=== PATIENT | female | born 1980 | race Caucasian/White ===

== ENCOUNTER 2020-10-09 23:50 | Emergency (ER) | payer OTHER ==
[~2020-10-09 23:50] MED LIST: ALBUTEROL2.5 MG/3 M NEB; BENADRYL25 MG PO; CARAFATE1 GM PO; ELAVIL25 MG PO; FAMOTIDINE40 MG PO; HYDROMORPHONE2 MG/ML IVP; LEXAPRO 10MG TA10 MG PO; METRONIDAZOLE500 MG PO; NICOTINE PATCH1 EAC2 EXT; NORCO 5-325 TA1 EACH PO; PANTOPRAZOLE SO40 MG PO; PERCOCET 5-3251 EACH PO; PREDNISONE 20MG20 MG PO; ROCEPHIN 1GM1 GM IV; TASIGNA150 MG PO; TRAMADOL HCL50 MG PO
[2020-10-10 02:06] LABS: BASOPHIL 4.6 % (0-2); BILIRUBIN NEGATIVE (NEGATIVE); BLOOD TRACE-INTACT Ery/uL (NEGATIVE); CLARITY CLEAR (CLEAR); COLOR YELLOW (YELLOW); GLUCOSE (U) NORMAL (NORMAL); HGB 15.9 g/dl (12.5-16.0); LEUKOCYTES NEGATIVE Leu/uL (NEGATIVE); LYMPHOCYTE 35.2 % (15-48); MCH 28.9 pg (25.0-31.0); MCHC 31.8 g/dL (32.0-36.0); MCV 90.7 fL (78.0-100.0); MONOCYTE 3.2 % (0-12); MPV 10.3 fL (6.0-9.5); NITRITE NEGATIVE (NEGATIVE); NRBC 0; PLT 537 K/uL (150-400); PROTEIN NEGATIVE (NEGATIVE); RBC 5.51 M/uL (4.20-5.40); RDW 13.8 % (11.5-14.0); SPECIFIC GRAVITY 1.015 (1.001-1.030); UROBILINOGEN 0.2 mg/dL (0.2-1.0); WBC 12.5 K/uL (4.0-10.5); pH 6.5 (5.0-9.0)
[2020-10-10 02:10] LABS: BACTERIA 1+; INR 1.03 (0.9-1.2); PROTHROMBIN TIME 12.8 SECONDS (11.4-13.6); PTT 30.6 SECONDS (22.2-34.7)
[2020-10-10 02:32] LABS: ALBUMIN 3.4 g/dL (3.4-5.0); BILIRUBIN - TOTAL 0.2 mg/dL (0.2-1.0); BUN/CREAT RATIO (CALC) 13.6 RATIO; CREATININE 0.59 mg/dL (0.51-0.95); GLOBULIN (CALCULATION) 4.1 g/dL; POTASSIUM 3.9 mmol/L (3.5-5.1); TOTAL PROTEIN 7.5 g/dL (6.4-8.2)
[2020-10-10] MEDS ORDERED: ZOFRAN4 M1 PO (06:17)
[2020-10-10] MEDS ORDERED: NORCO 5-325 TA1 EACH PO (06:17)
[2020-10-10] MEDS ORDERED: PHENERGAN25 M1 PO (06:34)
[2021-01-09] MEDS ORDERED: ULTRAM50 MG PO (11:31)
== END 2020-10-10 06:23 | disposition home or self-care (01) ==
LOC: FER 23:50 → EDBD 23:50 → FER 10-10 06:23
PROVIDERS: Emergency Medicine
DX: R10.9 Unspecified abdominal pain (principal); R11.2 Nausea with vomiting, unspecified; C92.10 Chronic myeloid leukemia, BCR/ABL-positive, not having achieved remission; F17.210 Nicotine dependence, cigarettes, uncomplicated; Z79.899 Other long term (current) drug therapy; Z98.2 Presence of cerebrospinal fluid drainage device; Z88.5 Allergy status to narcotic agent; Z88.8 Allergy status to other drugs, medicaments and biological substances
CPT/HCPCS: 36415; 80053; 81001; 82728; 83605; 83690; 83735; 84145; 85025; 85610; 85730; 87040; J1170; J2550; J7030; Q9967

== ENCOUNTER 2020-12-08 20:42 | Emergency (ER) | payer OTHER ==
[~2020-12-08 20:42] MED LIST changes: +PHENERGAN25 M1 PO; +ZOFRAN4 M1 PO
[2020-12-08 23:48] LABS: BASOPHIL 11.6 % (0-2); EOSINOPHIL 2.1 % (0-5); HCT 48.8 % (37.0-47.0); HGB 15.9 g/dl (12.5-16.0); MCH 28.6 pg (25.0-31.0); MCHC 32.6 g/dL (32.0-36.0); MCV 87.9 fL (78.0-100.0); MPV 10.9 fL (6.0-9.5); NRBC 0.3; RBC 5.55 M/uL (4.20-5.40); RDW 18.4 % (11.5-14.0)
[2020-12-08 23:54] LABS: WBC 30.2 K/uL (4.0-10.5)
[2020-12-08 23:55] LABS: NEUTROPHIL 49.2 % (41-80); PLT 1631 K/uL (150-400)
[2020-12-09 00:08] LABS: ALBUMIN 3.6 g/dL (3.4-5.0); BILIRUBIN - TOTAL 0.3 mg/dL (0.2-1.0); BUN/CREAT RATIO (CALC) 13.2 RATIO; CREATININE 0.68 mg/dL (0.51-0.95); GLOBULIN (CALCULATION) 4.3 g/dL; POTASSIUM 4.3 mmol/L (3.5-5.1); TOTAL PROTEIN 7.9 g/dL (6.4-8.2)
[2020-12-09 00:13] LABS: LACTIC ACID 1.2 mmol/L (0.4-1.9)
[2020-12-09 02:19] LABS: BILIRUBIN NEGATIVE (NEGATIVE); BLOOD TRACE-INTACT Ery/uL (NEGATIVE); CLARITY HAZY (CLEAR); COLOR YELLOW (YELLOW); GLUCOSE (U) NORMAL (NORMAL); LEUKOCYTES NEGATIVE Leu/uL (NEGATIVE); NITRITE NEGATIVE (NEGATIVE); PROTEIN NEGATIVE (NEGATIVE); UROBILINOGEN 0.2 mg/dL (0.2-1.0); pH 7.5 (5.0-9.0)
[2020-12-09 02:26] LABS: BACTERIA 3+
[2020-12-09] MEDS ORDERED: BENTYL10 MG PO (02:53)
[2020-12-09] MEDS ORDERED: PERCOCET 7.5/321 TAB PO (02:53)
[2020-12-09] MEDS ORDERED: BACTRIM DS TAB1 EACH PO (02:53)
[2021-01-09] MEDS ORDERED: ULTRAM50 MG PO (11:31)
[2021-03-25] MEDS ORDERED: NEURONTIN300 MG PO (12:54)
[2021-03-25] MEDS ORDERED: NORCO 5/3251 EACH PO (17:30)
[2021-04-08] MEDS ORDERED: VENLAFAXINE HCL75 M2 PO (09:56)
[2021-04-08] MEDS ORDERED: VENLAFAXINE H37.5 M2 PO (09:56)
== END 2020-12-09 03:15 | disposition home or self-care (01) ==
LOC: FER 20:42
PROVIDERS: Emergency Medicine Emergency Medical Services
DX: N30.00 Acute cystitis without hematuria (principal); F17.210 Nicotine dependence, cigarettes, uncomplicated; Z88.5 Allergy status to narcotic agent; Z88.8 Allergy status to other drugs, medicaments and biological substances
CPT/HCPCS: 36415; 80053; 81001; 83605; 85025; 96372; J1170; J2550; J7030

== ENCOUNTER → 2021-01-09 | Day surgery (SDC) | payer OTHER ==
[~2021-01-09] VITALS: Ht 157.5 cm; Wt 117.9 kg
[~2021-01-09] MED LIST changes: +BACTRIM DS TAB1 EACH PO; +BENTYL10 MG PO; +PERCOCET 7.5/321 TAB PO; +ULTRAM50 MG PO
[2021-01-09 08:44] LABS: BASOPHIL 11.1 % (0-2); EOSINOPHIL 2.8 % (0-5); HCT 44.4 % (37.0-47.0); HGB 14.7 g/dl (12.5-16.0); LYMPHOCYTE 13.5 % (15-48); MCH 29.8 pg (25.0-31.0); MCHC 33.1 g/dL (32.0-36.0); MCV 89.9 fL (78.0-100.0); MPV 11.3 fL (6.0-9.5); NEUTROPHIL 51.6 % (41-80); NRBC 0.7; RBC 4.94 M/uL (4.20-5.40)
[2021-01-09 08:47] LABS: PLT 1097 K/uL (150-400)
[2021-01-09 08:48] LABS: WBC 42.1 K/uL (4.0-10.5)
[2021-01-09 08:56] LABS: INR 1.09 (0.9-1.2); PROTHROMBIN TIME 13.4 SECONDS (11.4-13.6); PTT 32.3 SECONDS (22.2-34.7)
== END | disposition home or self-care (01) ==
LOC: FAS 07:36
PROVIDERS: Anesthesiology
DX: C92.10 Chronic myeloid leukemia, BCR/ABL-positive, not having achieved remission (principal); I10 Essential (primary) hypertension; E78.5 Hyperlipidemia, unspecified; I25.2 Old myocardial infarction; K21.9 Gastro-esophageal reflux disease without esophagitis; M10.9 Gout, unspecified; G93.5 Compression of brain; F17.210 Nicotine dependence, cigarettes, uncomplicated; E66.01 Morbid (severe) obesity due to excess calories; Z68.42 Body mass index [BMI] 45.0-49.9, adult; Z88.5 Allergy status to narcotic agent; Z88.8 Allergy status to other drugs, medicaments and biological substances; Z79.899 Other long term (current) drug therapy
CPT/HCPCS: 36415; 71045; 76000; 85025; 85610; 85730; C1788; J0690; J1644; J2001; J2250; J2704; J7120

== ENCOUNTER 2021-02-12 10:36 | Emergency (ER) | payer OTHER ==
[2021-02-12 11:45] LABS: ALBUMIN 3.2 g/dL (3.4-5.0); BILIRUBIN - TOTAL 0.2 mg/dL (0.2-1.0); BUN/CREAT RATIO (CALC) 23.2 RATIO; CREATININE 0.56 mg/dL (0.51-0.95); GLOBULIN (CALCULATION) 4.2 g/dL; POTASSIUM 3.9 mmol/L (3.5-5.1); TOTAL PROTEIN 7.4 g/dL (6.4-8.2)
[2021-02-12 12:00] LABS: BASOPHIL 14.6 % (0-2); EOSINOPHIL 4.5 % (0-5); HCT 40.5 % (37.0-47.0); HGB 13.3 g/dl (12.5-16.0); MCH 30.4 pg (25.0-31.0); MCHC 32.8 g/dL (32.0-36.0); MCV 92.7 fL (78.0-100.0); MONOCYTE 1.3 % (0-12); MPV 11.7 fL (6.0-9.5); NEUTROPHIL 65.7 % (41-80); NRBC 0; PLT 848 K/uL (150-400); RBC 4.37 M/uL (4.20-5.40); RDW 19.9 % (11.5-14.0); WBC 17.4 K/uL (4.0-10.5)
[2021-02-12 12:07] LABS: BILIRUBIN NEGATIVE (NEGATIVE); BLOOD NEGATIVE Ery/uL (NEGATIVE); CLARITY CLEAR (CLEAR); COLOR YELLOW (YELLOW); GLUCOSE (U) NORMAL (NORMAL); LEUKOCYTES NEGATIVE Leu/uL (NEGATIVE); NITRITE NEGATIVE (NEGATIVE); PROTEIN NEGATIVE (NEGATIVE); SPECIFIC GRAVITY 1.025 (1.001-1.030); UROBILINOGEN 0.2 mg/dL (0.2-1.0)
[2021-03-25] MEDS ORDERED: NEURONTIN300 MG PO (12:54)
[2021-03-25] MEDS ORDERED: NORCO 5/3251 EACH PO (17:30)
[2021-04-08] MEDS ORDERED: VENLAFAXINE HCL75 M2 PO (09:56)
[2021-04-08] MEDS ORDERED: VENLAFAXINE H37.5 M2 PO (09:56)
== END 2021-02-12 13:40 | disposition home or self-care (01) ==
LOC: FER 10:36
PROVIDERS: Emergency Medicine
DX: R10.11 Right upper quadrant pain (principal); R31.9 Hematuria, unspecified; R11.2 Nausea with vomiting, unspecified; R19.7 Diarrhea, unspecified; F17.210 Nicotine dependence, cigarettes, uncomplicated; Z88.5 Allergy status to narcotic agent; Z88.8 Allergy status to other drugs, medicaments and biological substances
CPT/HCPCS: 36415; 80053; 81003; 82150; 83690; 85025; J0595; J1170; J1642; J1885; J2550

== ENCOUNTER 2021-02-26 19:24 | Emergency (ER) | payer OTHER ==
[2021-02-26 21:02] LABS: BASOPHIL 14.3 % (0-2); EOSINOPHIL 1.8 % (0-5); HCT 39.7 % (37.0-47.0); HGB 12.4 g/dl (12.5-16.0); LYMPHOCYTE 36.4 % (15-48); MCH 29.7 pg (25.0-31.0); MCHC 31.2 g/dL (32.0-36.0); MONOCYTE 12.1 % (0-12); MPV 10.5 fL (6.0-9.5); NEUTROPHIL 32.9 % (41-80); NRBC 0; PLT 781 K/uL (150-400); RBC 4.18 M/uL (4.20-5.40); RDW 17.2 % (11.5-14.0); WBC 7.1 K/uL (4.0-10.5)
[2021-02-26 21:12] LABS: ALBUMIN 3.3 g/dL (3.4-5.0); BILIRUBIN - TOTAL 0.3 mg/dL (0.2-1.0); BUN/CREAT RATIO (CALC) 16.4 RATIO; CREATININE 0.61 mg/dL (0.51-0.95); GLOBULIN (CALCULATION) 3.8 g/dL; POTASSIUM 3.9 mmol/L (3.5-5.1); TOTAL PROTEIN 7.1 g/dL (6.4-8.2)
[2021-02-26 21:28] LABS: BILIRUBIN NEGATIVE (NEGATIVE); BLOOD TRACE-INTACT Ery/uL (NEGATIVE); CLARITY CLEAR (CLEAR); COLOR YELLOW (YELLOW); GLUCOSE (U) NORMAL (NORMAL); LEUKOCYTES NEGATIVE Leu/uL (NEGATIVE); NITRITE NEGATIVE (NEGATIVE); PROTEIN NEGATIVE (NEGATIVE); SPECIFIC GRAVITY 1.025 (1.001-1.030); UROBILINOGEN 0.2 mg/dL (0.2-1.0); pH 6.5 (5.0-9.0)
[2021-02-26 21:35] LABS: AMORPHOUS URATES CRYSTALS MODERATE; BACTERIA TRACE; URINARY RBC RARE; URINARY WBC RARE
[2021-03-25] MEDS ORDERED: NEURONTIN300 MG PO (12:54)
[2021-03-25] MEDS ORDERED: NORCO 5/3251 EACH PO (17:30)
[2021-04-08] MEDS ORDERED: VENLAFAXINE HCL75 M2 PO (09:56)
[2021-04-08] MEDS ORDERED: VENLAFAXINE H37.5 M2 PO (09:56)
== END 2021-02-26 23:42 | disposition home or self-care (01) ==
LOC: FER 19:24
PROVIDERS: Nurse Practitioner Family
DX: R10.84 Generalized abdominal pain (principal); R07.89 Other chest pain; R11.0 Nausea; F17.210 Nicotine dependence, cigarettes, uncomplicated; Z88.6 Allergy status to analgesic agent; Z88.5 Allergy status to narcotic agent; Z88.8 Allergy status to other drugs, medicaments and biological substances
CPT/HCPCS: 36415; 80053; 81001; 84484; 85025; 93005; J1170; J1642; J2550; J7030; Q9967

== ENCOUNTER 2021-03-30 18:19 | Emergency (ER) | payer OTHER ==
[~2021-03-30 18:19] MED LIST changes: +NEURONTIN300 MG PO; +NORCO 5/3251 EACH PO
[2021-03-30 22:45] LABS: BILIRUBIN 1+ mg/dL (NEGATIVE); BLOOD 3+ Ery/uL (NEGATIVE); COLOR YELLOW (YELLOW); GLUCOSE (U) NORMAL (NORMAL); LEUKOCYTES NEGATIVE Leu/uL (NEGATIVE); NITRITE NEGATIVE (NEGATIVE); PROTEIN TRACE (LOW) mg/dL (NEGATIVE); SPECIFIC GRAVITY 1.025 (1.001-1.030); UROBILINOGEN 0.2 mg/dL (0.2-1.0)
[2021-03-30 22:48] LABS: CLARITY HAZY (CLEAR)
[2021-03-30 22:52] LABS: URINARY RBC TNTC; URINARY WBC RARE
[2021-03-30 22:53] LABS: BACTERIA TRACE; MUCOUS TRACE
[2021-03-30 23:24] LABS: BASOPHIL 6.8 % (0-2); EOSINOPHIL 2.4 % (0-5); HCT 48.5 % (37.0-47.0); HGB 15.2 g/dl (12.5-16.0); MCH 28.3 pg (25.0-31.0); MCHC 31.3 g/dL (32.0-36.0); MCV 90.1 fL (78.0-100.0); MPV 10.1 fL (6.0-9.5); NEUTROPHIL 59.8 % (41-80); NRBC 0; RBC 5.38 M/uL (4.20-5.40); WBC 10.5 K/uL (4.0-10.5)
[2021-03-30 23:32] LABS: ALBUMIN 3.2 g/dL (3.4-5.0); BILIRUBIN - TOTAL 0.3 mg/dL (0.2-1.0); BUN/CREAT RATIO (CALC) 18.5 RATIO; CREATININE 0.54 mg/dL (0.51-0.95); GLOBULIN (CALCULATION) 4.1 g/dL; POTASSIUM 3.8 mmol/L (3.5-5.1); TOTAL PROTEIN 7.3 g/dL (6.4-8.2)
[2021-03-30 23:40] LABS: PLT 478 K/uL (150-400)
[2021-03-31 00:52] LABS: AMPHETAMINES NEGATIVE (NEGATIVE); BARBITURATES NEGATIVE (NEGATIVE); ECSTASY (MDMA) NEGATIVE (NEGATIVE); MARIJUANA (THC) NEGATIVE (NEGATIVE); METHADONE NEGATIVE (NEGATIVE); OPIATES POSITIVE (NEGATIVE); OXYCODONE NEGATIVE (NEGATIVE)
[2021-03-31] MEDS ORDERED: NORCO 5-325 TA1 EACH PO (01:21)
[2021-04-08] MEDS ORDERED: VENLAFAXINE H37.5 M2 PO (09:56)
[2021-04-08] MEDS ORDERED: VENLAFAXINE HCL75 M2 PO (09:56)
== END 2021-03-31 01:50 | disposition home or self-care (01) ==
LOC: FER 18:19
PROVIDERS: Emergency Medicine
DX: R10.31 Right lower quadrant pain (principal); R11.0 Nausea; R19.7 Diarrhea, unspecified; F17.210 Nicotine dependence, cigarettes, uncomplicated; Z87.442 Personal history of urinary calculi; Z90.49 Acquired absence of other specified parts of digestive tract; Z88.5 Allergy status to narcotic agent; Z88.8 Allergy status to other drugs, medicaments and biological substances
CPT/HCPCS: 36415; 80053; 80305; 81001; 83690; 85025; J1170; J2550; J7030; Q0169; Q9967